=== PATIENT | female | born 1985 | race Caucasian/White ===

== ENCOUNTER 2022-05-19 19:55 | Emergency (ER) | payer OTHER ==
[2022-05-19 20:17] VITALS: TEMP 97.9; BMI 26.6
[2022-05-19 22:53] VITALS: BP 110/64; PULSE 60
[2022-05-19 22:53] LABS: PH,URINE 6.5 (5.0-8.0); URINE APPEARANCE CLEAR; URINE BILIRUBIN NEGATIVE (NEGATIVE); URINE COLOR YELLOW; URINE GLUCOSE (UA) NEGATIVE (NEGATIVE); URINE KETONE NEGATIVE (NEGATIVE); URINE LEUK ESTERASE NEGATIVE (NEGATIVE); URINE NITRITE NEGATIVE (NEGATIVE); URINE PROTEIN NEGATIVE (NEGATIVE); URINE UROBILINOGEN 0.2 mg/dL (0.2-1.0)
== END 2022-05-20 01:15 | disposition home or self-care (01) ==
LOC: JER 19:55
DX: O26.892 Other specified pregnancy related conditions, second trimester (principal); R10.9 Unspecified abdominal pain; Z3A.20 20 weeks gestation of pregnancy
CPT/HCPCS: 76801-TC; 76817-TC; 81003; 99285-25

== ENCOUNTER 2022-09-19 21:00 | Inpatient (IN) | payer OTHER ==
[2022-09-19] MEDS ORDERED: DINOPROSTONE 10 MG VAGINAL SUPPOSITORY VG ONE ×2 (21:47→22:25)
[2022-09-19] MEDS ORDERED: AMPICILLIN - 2 GM in SODIUM CHLORIDE 100 ML IVPB ONE (21:50)
[2022-09-19] MEDS: ELECTROLYTE-148 SOLN 1,000 ML IV SCH (22:15)
[2022-09-19 23:27] VITALS: BMI 26.6
[2022-09-20] MEDS ORDERED: AMPICILLIN SODIUM 2 GM VIAL ONE (02:11)
[2022-09-20] MEDS: AMPICILLIN - 1 GM in SODIUM CHLORIDE 100 ML IVPB SCH ×3 (06:00→13:39)
[2022-09-20] MEDS ORDERED: AMPICILLIN SODIUM 1 GM VIAL ONE ×3 (06:18→13:34)
[2022-09-20] MEDS ORDERED: NALOXONE HCL 0.4 MG/ML VIAL IVPUSH PRN (11:40)
[2022-09-20] MEDS ORDERED: FENTANYL/BUPIVACAINE/NS/PF - PCEA - 50 ML DISP.SYRIN EP ONE (11:40)
[2022-09-20] MEDS ORDERED: FENTANYL/BUPIVACAINE/NS/PF - PCEA - 50 ML DISP.SYRIN EP SCH (11:45)
[2022-09-20] MEDS: ELECTROLYTE-148 SOLN 1,000 ML IV SCH (11:50)
[2022-09-20] MEDS ORDERED: OXYTOCIN 20 UNITS in 0.9% NS 20 UNIT/1,000 ML INFUS.BAG IV ONE (14:28)
[2022-09-20] MEDS ORDERED: ACETAMINOPHEN 325 MG TABLET (FP) PO PRN (15:23)
[2022-09-20] MEDS ORDERED: oxyCODONE HCL 5 MG TABLET PO PRN (15:23)
[2022-09-20] MEDS ORDERED: BENZOCAINE 28 GM HEMORRHOIDAL OINTMENT TP PRN (15:23)
[2022-09-20] MEDS ORDERED: BISACODYL 10 MG SUPP.RECT RC PRN (15:23)
[2022-09-20] MEDS ORDERED: METHYLERGONOVINE MALEATE 0.2 MG/1 ML AMP IM PRN (15:23)
[2022-09-20] MEDS ORDERED: WITCH HAZEL 50% (TUCKS) 40 PAD/JAR PAD TP PRN (15:23)
[2022-09-20] MEDS ORDERED: BENZOCAINE 20% 57 GM BOTTLE TP PRN (15:23)
[2022-09-20] MEDS ORDERED: OXYTOCIN 20 UNITS in 0.9% NS 20 UNIT/1,000 ML INFUS.BAG IV SCH (15:30)
[2022-09-20] MEDS: IBUPROFEN 600 MG TABLET (FP) PO PRN (15:40)
[2022-09-20] MEDS: FERROUS SO4 325 MG TABLET (FP) PO SCH (17:27)
[2022-09-21] MEDS: IBUPROFEN 600 MG TABLET (FP) PO PRN ×5 (00:44→23:13)
[2022-09-21] MEDS: FERROUS SO4 325 MG TABLET (FP) PO SCH ×3 (08:57→18:16)
[2022-09-21] MEDS: PRENATAL VITAMINS W/ FOLIC ACID TABLET (FP) PO SCH (09:00)
[2022-09-21 09:10] LABS: BASO % 0.3 % (0-2.0); HEMATOCRIT 35.6 % (32.4-45.2); HEMOGLOBIN 12.3 GM/dL (10.7-15.3); LYMPH % 16.8 % (8-40); MCH 33.2 pg (25.7-33.7); MCHC 34.6 g/dl (32.0-36.0); MEAN PLT VOLUME 7.7 fl (7.5-11.1); MONO % 10.2 % (3.8-10.2); NEUT % 70.7 % (42.8-82.8); PLATELET COUNT 217 10^3/uL (134-434); RBC 3.71 M/mm3 (3.60-5.2); RDW 13.4 % (11.6-15.6); WHITE BLOOD COUNT 8.5 K/mm3 (4.0-10.0)
[2022-09-21] MEDS ORDERED: SENNOSIDES/DOCUSATE COMBO (SENNA PLUS) TABLET (UD) PO PRN (22:00)
[2022-09-22] MEDS: IBUPROFEN 600 MG TABLET (FP) PO PRN (06:16)
[2022-09-22 08:20] VITALS: BP 112/75; PULSE 59; RESP 18; TEMP 98
[2022-09-22] MEDS: FERROUS SO4 325 MG TABLET (FP) PO SCH (10:00)
[2022-09-22] MEDS: PRENATAL VITAMINS W/ FOLIC ACID TABLET (FP) PO SCH (10:00)
== END 2022-09-22 13:13 | disposition home or self-care (01) | DRG 806 ==
LOC: JLDR 21:00 → J3W 09-20 16:30
PROVIDERS: ADMIT Obstetrics & Gynecology; ATTEND Obstetrics & Gynecology
PROC: 3E0P7VZ Introduction of Hormone into Female Reproductive, Via Natural or Artificial Opening (ICD-10-PCS; 2022-09-19)
PROC: 10E0XZZ Delivery of Products of Conception, External Approach (ICD-10-PCS; principal; 2022-09-20)
PROC: 0HQ9XZZ Repair Perineum Skin, External Approach (ICD-10-PCS; 2022-09-20)
PROC: 0UQMXZZ Repair Vulva, External Approach (ICD-10-PCS; 2022-09-20)
DX: O36.5930 Maternal care for other known or suspected poor fetal growth, third trimester, not applicable or unspecified (principal); O41.03X0 Oligohydramnios, third trimester, not applicable or unspecified; Z37.0 Single live birth; O99.824 Streptococcus B carrier state complicating childbirth; Z3A.38 38 weeks gestation of pregnancy; Z86.59 Personal history of other mental and behavioral disorders
CPT/HCPCS: 36415; 59409; 85025; 88307-TC

== ENCOUNTER 2024-06-06 12:50 | Emergency (ER) | payer OTHER ==
[2024-06-06 13:00] VITALS: BMI 29.9
[2024-06-06 14:54] LABS: URINE APPEARANCE CLEAR; URINE BILIRUBIN NEGATIVE (NEGATIVE); URINE COLOR YELLOW; URINE GLUCOSE (UA) NEGATIVE (NEGATIVE); URINE KETONE NEGATIVE (NEGATIVE); URINE LEUK ESTERASE NEGATIVE (NEGATIVE); URINE NITRITE NEGATIVE (NEGATIVE); URINE PROTEIN NEGATIVE (NEGATIVE); URINE UROBILINOGEN 0.2 mg/dL (0.2-1.0)
[2024-06-06] MEDS ORDERED: ACETAMINOPHEN INJECTION 100 ML IVPB ONE (15:02)
[2024-06-06] MEDS ORDERED: METOCLOPRAMIDE HCL INJECTION 10 MG/2 ML VIAL ONE (15:02)
[2024-06-06 15:06] LABS: BASO % 0.4 % (0-2.0); EOS % 0.3 % (0-4.5); HEMATOCRIT 30.8 % (32.4-45.2); HEMOGLOBIN 10.5 GM/dL (10.7-15.3); LYMPH % 13.8 % (8-40); MCH 31.8 pg (25.7-33.7); MCHC 34.2 g/dl (32.0-36.0); MEAN CELL VOLUME 92.9 fl (80-96); MEAN PLT VOLUME 7.1 fl (7.5-11.1); MONO % 8.5 % (3.8-10.2); PLATELET COUNT 235 10^3/uL (134-434); RBC 3.32 M/mm3 (3.60-5.2); RDW 12.9 % (11.6-15.6); WHITE BLOOD COUNT 6.7 K/mm3 (4.0-10.0)
[2024-06-06] MEDS: ACETAMINOPHEN 1000 MG/100 ML BAG IVPB ONE (15:08)
[2024-06-06] MEDS: METOCLOPRAMIDE HCL INJECTION 10 MG/2 ML VIAL IVPB ONE (15:08)
[2024-06-06] MEDS: SODIUM CHLORIDE 2,000 ML IV STA (15:08)
[2024-06-06 15:25] LABS: POTASSIUM 3.5 mmol/L (3.5-5.1)
[2024-06-06 15:26] LABS: CALCIUM 8.5 mg/dL (8.5-10.1)
[2024-06-06 15:27] LABS: ALBUMIN 2.7 g/dl (3.4-5.0); BLOOD UREA NITROGEN 4.4 mg/dL (7-18)
[2024-06-06 15:30] LABS: CREATININE 0.7 mg/dL (0.55-1.3)
[2024-06-06 15:32] LABS: BILIRUBIN,TOTAL 0.6 mg/dL (0.2-1); TOT PROT 6.1 g/dl (6.4-8.2)
[2024-06-06 18:32] VITALS: BP 109/52; PULSE 64; RESP 18; TEMP 97.7
[2024-06-06] MEDS: LACTATED RINGERS SOLUTION 1,000 ML IV ONE (19:57)
== END 2024-06-06 21:28 | disposition home or self-care (01) ==
LOC: JER 12:50
PROC: 3E033NZ Introduction of Analgesics, Hypnotics, Sedatives into Peripheral Vein, Percutaneous Approach (ICD-10-PCS; principal; 2024-06-06)
PROC: 3E033GC Introduction of Other Therapeutic Substance into Peripheral Vein, Percutaneous Approach (ICD-10-PCS; 2024-06-06)
PROC: 3E0337Z Introduction of Electrolytic and Water Balance Substance into Peripheral Vein, Percutaneous Approach (ICD-10-PCS; 2024-06-06)
PROC: 3E0337Z Introduction of Electrolytic and Water Balance Substance into Peripheral Vein, Percutaneous Approach (ICD-10-PCS; 2024-06-06)
DX: O99.891 Other specified diseases and conditions complicating pregnancy (principal); R51.9 Headache, unspecified; H53.149 Visual discomfort, unspecified; O99.282 Endocrine, nutritional and metabolic diseases complicating pregnancy, second trimester; E86.0 Dehydration; O26.892 Other specified pregnancy related conditions, second trimester; R11.0 Nausea; Z3A.25 25 weeks gestation of pregnancy; Z20.822 Contact with and (suspected) exposure to COVID-19
CPT/HCPCS: 0241U-QW; 36415; 76815-TC; 80053; 81003; 85025; 87086; 99284-25; J0131

== ENCOUNTER 2024-09-08 14:25 | Inpatient (IN) | payer OTHER ==
[2024-09-08] MEDS: ELECTROLYTE-148 SOLN 1,000 ML IV SCH (15:00)
[2024-09-08] MEDS ORDERED: FENTANYL CITRATE/PF 50 MCG/ML VIAL ONE (15:05)
[2024-09-08] MEDS: FENTANYL CITRATE/PF 50 MCG/ML VIAL IVPUSH ONE (15:10)
[2024-09-08 15:24] LABS: BASO % 0.4 % (0-2.0); EOS % 0.4 % (0-4.5); HEMATOCRIT 34.9 % (32.4-45.2); HEMOGLOBIN 11.6 GM/dL (10.7-15.3); LYMPH % 12.3 % (8-40); MCH 29.2 pg (25.7-33.7); MCHC 33.3 g/dl (32.0-36.0); MEAN CELL VOLUME 87.8 fl (80-96); MONO % 5.5 % (3.8-10.2); NEUT % 81.4 % (42.8-82.8); PLATELET COUNT 251 10^3/uL (134-434); RBC 3.97 M/mm3 (3.60-5.2); RDW 14.5 % (11.6-15.6); WHITE BLOOD COUNT 9.4 K/mm3 (4.0-10.0)
[2024-09-08 15:29] LABS: INR 0.9 (0.83-1.09); PROTHROMBIN TIME (PATIENT) 10.2 SEC (9.7-13.0)
[2024-09-08 15:32] LABS: ACTIVATED PTT 27.9 SECONDS (25.2-36.5)
[2024-09-08] MEDS ORDERED: OXYTOCIN 20 UNITS in 0.9% NS 20 UNIT/1,000 ML INFUS.BAG IV ONE (15:37)
[2024-09-08 15:44] LABS: CHLORIDE 107 mmol/L (98-107); POTASSIUM 3.7 mmol/L (3.5-5.1); SODIUM 136 mmol/L (136-145)
[2024-09-08 15:48] LABS: ANION GAP 11 mmol/L (4-13); CO2 19 mmol/L (21-32)
[2024-09-08 15:49] LABS: BLOOD UREA NITROGEN 8.3 mg/dL (7-18); GLUCOSE,RANDOM 82 mg/dL (74-106)
[2024-09-08] MEDS ORDERED: FENTANYL/BUPIVACAINE/NS/PF - PCEA - 50 ML DISP.SYRIN EP ONE (15:49)
[2024-09-08 15:52] LABS: CREATININE 0.8 mg/dL (0.55-1.3)
[2024-09-08] MEDS: OXYTOCIN 20 UNITS in 0.9% NS 20 UNIT/1,000 ML INFUS.BAG IV SCH (16:15)
[2024-09-08] MEDS ORDERED: BENZOCAINE 20% 57 GM BOTTLE TP PRN (16:35)
[2024-09-08] MEDS ORDERED: WITCH HAZEL 50% (TUCKS) 40 PAD/JAR PAD TP PRN (16:35)
[2024-09-08] MEDS ORDERED: oxyCODONE HCL 5 MG TABLET PO PRN (16:35)
[2024-09-08] MEDS ORDERED: METHYLERGONOVINE MALEATE 0.2 MG/1 ML AMP IM PRN (16:35)
[2024-09-08] MEDS ORDERED: BENZOCAINE 28 GM HEMORRHOIDAL OINTMENT TP PRN (16:35)
[2024-09-08] MEDS ORDERED: BISACODYL 10 MG SUPP.RECT RC PRN (16:35)
[2024-09-08] MEDS ORDERED: IBUPROFEN 800 MG/8 ML IJ IVPB PRN (16:36)
[2024-09-08 17:17] LABS: CORD BASE EXCESS -8.3 mmol/L (0-2); CORD HCO3 17.4 mmHg (20-29); CORD PCO2 36.5 mmHg (30-78); CORD pH 7.295 (7.14-7.44)
[2024-09-08] MEDS ORDERED: IBUPROFEN 600 MG TABLET (FP) PO ONE (17:23)
[2024-09-08] MEDS: IBUPROFEN 600 MG TABLET (FP) PO PRN (17:25)
[2024-09-08 17:26] LABS: HIV INTERPRETATION NEGATIVE (NEGATIVE)
[2024-09-08 17:44] VITALS: BMI 31.1
[2024-09-08 17:49] LABS: HEPATITIS B SURFACE AG MATERN NON-REACTIVE (NONREACTIVE)
[2024-09-08] MEDS: ACETAMINOPHEN 325 MG TABLET (FP) PO PRN (20:40)
[2024-09-09 08:38] LABS: BASO % 0.3 % (0-2.0); EOS % 2.1 % (0-4.5); HEMATOCRIT 28.7 % (32.4-45.2); HEMOGLOBIN 9.8 GM/dL (10.7-15.3); MCH 29.9 pg (25.7-33.7); MCHC 34.2 g/dl (32.0-36.0); MEAN CELL VOLUME 87.6 fl (80-96); MEAN PLT VOLUME 7.5 fl (7.5-11.1); MONO % 9.3 % (3.8-10.2); NEUT % 67.3 % (42.8-82.8); PLATELET COUNT 200 10^3/uL (134-434); RBC 3.27 M/mm3 (3.60-5.2); RDW 14.7 % (11.6-15.6); WHITE BLOOD COUNT 7.6 K/mm3 (4.0-10.0)
[2024-09-09] MEDS: PRENATAL VITAMINS W/ FOLIC ACID TABLET (FP) PO SCH (09:16)
[2024-09-09] MEDS: IRON SUCROSE INJECTION 200 MG in SODIUM CHLORIDE 100 ML IVPB ONE (19:48)
[2024-09-09] MEDS ORDERED: SENNOSIDES/DOCUSATE COMBO (SENNA PLUS) TABLET (UD) PO PRN (22:00)
[2024-09-10 10:00] VITALS: BP 132/85; PULSE 69; RESP 18; TEMP 97.7
== END 2024-09-10 15:10 | disposition home or self-care (01) | DRG 807 ==
LOC: JLDR 14:25 → J3W 20:39
PROVIDERS: ADMIT Obstetrics & Gynecology; ATTEND Obstetrics & Gynecology
PROC: 0HQ9XZZ Repair Perineum Skin, External Approach (ICD-10-PCS; principal; 2024-09-08)
PROC: 10E0XZZ Delivery of Products of Conception, External Approach (ICD-10-PCS; 2024-09-08)
DX: O70.0 First degree perineal laceration during delivery (principal); Z37.0 Single live birth; Z3A.38 38 weeks gestation of pregnancy
CPT/HCPCS: 36415; 36600; 59409; 80048; 82803; 85025; 85610; 85730; 86780; 86803; 86850; 86900; 86901; 87340; 87389; J1756